=== PATIENT | female | born 1970 | race Asian ===

== ENCOUNTER 2020-08-30 05:28 | Inpatient (IN) | payer BC ==
[2020-08-25 08:44] LABS: CLARITY,URINE CLEAR (CLEAR); COLOR,URINE YELLOW (YELLOW); KETONES,URINE NEGATIVE (NEGATIVE); LEUKOCYTE ESTERASE ,URINE NEGATIVE (NEGATIVE); NITRITE,URINE NEGATIVE (NEGATIVE); PROTEIN,URINE DIPSTICK NEGATIVE (NEGATIVE); URINE UROBILINOGEN 0.2 mg/dL (0.2 - 1)
[2020-08-25 08:45] LABS: BASOPHILS % 0.3 % (0.0-1.0); EOSINOPHILS # (AUTO) 0.1 (0.0-0.4); EOSINOPHILS % 1.8 % (0.0-6.0); HEMATOCRIT 42.4 % (34.2-44.1); HEMOGLOBIN 12.6 g/dL (12.0-16.0); LYMPHOCYTES # (AUTO) 1.4 (1.0-3.2); LYMPHOCYTES % 22.1 % (18.0-39.1); MEAN CORPUSCULAR HEMOGLOBIN 23.8 pg (28-32); MEAN CORPUSCULAR HGB CONC 29.7 g/dL (31-35); MONOCYTES # (AUTO) 0.4 (0.2-0.8); MONOCYTES % 5.9 % (4.4-11.3); NEUTROPHILS # (AUTO) 4.2 (2.1-6.9); NEUTROPHILS % 69.6 % (38.7-80.0); PLATELET COUNT 130 x10e3/uL (140-360); RED CELL DISTRIBUTION WIDTH 21.2 % (11.7-14.4)
[2020-08-25 09:47] LABS: HIV 1&2 AB SCREEN NON-REACTIVE (NONREACTIVE)
[~2020-08-30] VITALS: Ht 172.7 cm; Wt 72.6 kg
[~2020-08-30 05:28] MED LIST: FERROUS SULFAT324 MG PO
[2020-08-30] MEDS ORDERED: CEFOXITIN 1GM/0.9% NS 50ML 100 ML IV ONE (06:12)
[2020-08-30] MEDS ORDERED: BUPIVACAINE LIPOSOME/PF 266 MG/20 ML IJ ONE (07:20)
[2020-08-30] MEDS ORDERED: HYDROMORPHONE 2MG/ML 2 MG/ML ML ONE (09:01)
[2020-08-30] MEDS ORDERED: DIPHENHYDRAMINE HCL 25 MG CAP PO PRN ×2 (11:15)
[2020-08-30] MEDS ORDERED: ONDANSETRON HCL INJ 2MG/ML 2ML 2 MG/ML VIAL IV PRN (11:15)
[2020-08-30] MEDS ORDERED: DIPHENHYDRAMINE HCL INJ 50 MG/ML VIAL IM PRN (11:15)
[2020-08-30] MEDS ORDERED: BISACODYL 5 MG TAB EC PO PRN (11:15)
[2020-08-30] MEDS ORDERED: DOCUSATE SODIUM 100 MG CAP PO PRN (11:15)
[2020-08-30] MEDS ORDERED: NALOXONE HCL INJ 0.4 MG/ML AMP IV PRN (11:15)
[2020-08-30] MEDS: HYDROMORPHONE 0.2MG/ML-SOD CHL 30ML PCA SYRINGE IV PRN (11:28)
[2020-08-30 12:23] VITALS: BP 119/72
[2020-08-30 13:16] VITALS: BP 119/72
[2020-08-30] MEDS ORDERED: MIDAZOLAM HCL 2 MG/2 ML VIAL ONE (13:19)
[2020-08-30] MEDS ORDERED: FENTANYL CITRATE/PF 100MCG/2 ML INJ ONE (13:19)
[2020-08-30 13:22] VITALS: BP 119/72
[2020-08-30] MEDS: DEXTROSE 5%/LACTATED RINGERS 1,000 ML IV SCH ×2 (14:00→23:38)
[2020-08-30] MEDS: CEFOXITIN 2GM/ D5W 50ML 50 ML IV SCH ×2 (15:06→20:55)
[2020-08-30 15:45] VITALS: BP 108/73
[2020-08-30 20:00] VITALS: BP 114/68
[2020-08-30] MEDS: ONDANSETRON HCL INJ 2MG/ML 2ML 2 MG/ML VIAL IV PRN (20:55)
[2020-08-30 21:39] VITALS: BP 114/68
[2020-08-31] VITALS (8 sets, daily range): BP systolic 101–123; BP diastolic 62–83
[2020-08-31] MEDS: ONDANSETRON HCL INJ 2MG/ML 2ML 2 MG/ML VIAL IV PRN ×2 (01:00→06:15)
[2020-08-31] MEDS: CEFOXITIN 2GM/ D5W 50ML 50 ML IV SCH ×2 (03:06→09:00)
[2020-08-31] MEDS: DEXTROSE 5%/LACTATED RINGERS 1,000 ML IV SCH (03:29)
[2020-08-31 05:30] LABS: BASOPHILS % 0.1 % (0.0-1.0); HEMATOCRIT 32.1 % (34.2-44.1); HEMOGLOBIN 9.6 g/dL (12.0-16.0); LYMPHOCYTES # (AUTO) 1.1 (1.0-3.2); LYMPHOCYTES % 7.8 % (18.0-39.1); MEAN CORPUSCULAR HGB CONC 29.9 g/dL (31-35); MEAN CORPUSCULAR VOLUME 80.3 fL (81-99); MONOCYTES # (AUTO) 0.8 (0.2-0.8); MONOCYTES % 5.6 % (4.4-11.3); NEUTROPHILS # (AUTO) 12.1 (2.1-6.9); NEUTROPHILS % 86.1 % (38.7-80.0); PLATELET COUNT 85 x10e3/uL (140-360); RED CELL DISTRIBUTION WIDTH 20.9 % (11.7-14.4)
[2020-08-31 05:57] LABS: ANION GAP 11.2 mmol/L (8-16); BLOOD UREA NITROGEN 6 mg/dL (7-26); BUN/CREATININE RATIO 9 (6-25); CALCIUM 8.1 mg/dL (8.4-10.2); CARBON DIOXIDE 22 mmol/L (22-29); CHLORIDE 108 mmol/L (98-107); CREATININE, SERUM 0.69 mg/dL (0.57-1.11); EST GLOMERULAR FILTRATION RATE > 60 ML/MIN (60-); GLUCOSE 142 mg/dL (74-118); POTASSIUM 4.2 mmol/L (3.5-5.1); SODIUM 137 mmol/L (136-145)
[2020-08-31] MEDS: HYDROMORPHONE 0.2MG/ML-SOD CHL 30ML PCA SYRINGE IV PRN (07:03)
[2020-08-31 08:52] LABS: HYPOCHROMASIA SLIGHT; PLATELET ESTIMATE MODERATELY DECREASED; PLATELET MORPHOLOGY COMMENT NORMAL
[2020-08-31 08:53] LABS: ANISOCYTOSIS MARKED; ELLIPTOCYTE, RBC SLIGHT; OVALOCYTES FEW; SCHISTOCYTES RARE
[2020-08-31 08:54] LABS: RBC MORPHOLOGY COMMENT ABNORMAL
[2020-08-31] MEDS ORDERED: HYDROCODONE/APAP 5MG-325MG TAB PO PRN (09:30)
[2020-08-31] MEDS: KETOROLAC TROMETHAMINE 30 MG/ML VIAL IV PRN ×2 (09:30→20:10)
[2020-08-31] MEDS ORDERED: ZOLPIDEM TARTRATE 5 MG TAB PO PRN (18:15)
[2020-08-31] MEDS: IBUPROFEN 400 MG TAB PO PRN (18:26)
[2020-09-01] MEDS: IBUPROFEN 400 MG TAB PO PRN ×2 (05:22→15:48)
[2020-09-01 08:00] VITALS: BP 132/83
[2020-09-01 08:30] VITALS: BP 132/83
[2020-09-01 11:53] VITALS: BP 133/93
[2020-09-01] MEDS: KETOROLAC TROMETHAMINE 30 MG/ML VIAL IV PRN (16:25)
[2020-09-01] MEDS ORDERED: MOTRIN200 MG PO (16:45)
[2020-09-01] MEDS ORDERED: TYLENOL # 31 EA PO (16:45)
[2020-09-01] MEDS ORDERED: COLACE100 MG PO (16:46)
[2020-09-01] MEDS ORDERED: HEMOCYTE PLUS1 EACH PO (16:46)
== END 2020-09-01 17:35 | disposition home or self-care (01) | DRG 743 ==
LOC: OR 05:28 → PACU V 11:08 → MED/SURG 12:22 → OBSVTOIN 08-31 12:18
PROVIDERS: ADMIT Specialist; ATTEND Specialist
PROC: 0UT70ZZ Resection of Bilateral Fallopian Tubes, Open Approach (ICD-10-PCS; 2020-08-30)
PROC: 0UT90ZZ Resection of Uterus, Open Approach (ICD-10-PCS; principal; 2020-08-30 07:30)
DX: D25.9 Leiomyoma of uterus, unspecified (principal); D64.9 Anemia, unspecified; Z20.822 Contact with and (suspected) exposure to COVID-19
CPT/HCPCS: 36415; 71046; 80048; 81003; 84702; 85025; 86850; 86900; 87390; 88307; 88329; 93005; G0378; G0433; G0435; J0694; J1885; J2250; J2405; J3010; U0002